=== PATIENT | female | born 1970 | race Two or more races ===

== ENCOUNTER 2020-01-08 00:16 | Emergency (ER) | payer MEDICARE, OTHER ==
[~2020-01-08] VITALS: Ht 162.6 cm; Wt 113.4 kg
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
--- NOTE | 2020-01-08 00:42 | NUR ---
HOT DIP GALVANIZER AT BEDSIDE FOR BLOOD DRAW
[2020-01-08 00:51] LABS: BASOPHILS % (AUTO) 0.4 % (0.0-2.0); EOSINOPHILS % (AUTO) 2.7 % (0.0-6.0); HEMATOCRIT 36 % (33-45); HEMOGLOBIN 11.7 g/dL (11.5-14.8); LYMPHOCYTES # (AUTO) 1.6 /CMM (0.8-4.8); LYMPHOCYTES % (AUTO) 24.4 % (20.0-44.0); MEAN CORPUSCULAR HGB CONC 33 g/dl (31.0-36.0); MEAN CORPUSCULAR VOLUME 91 fL (82-100); MONOCYTES # (AUTO) 0.4 /CMM (0.1-1.30); MONOCYTES % (AUTO) 6.1 % (2.0-12.0); NEUTROPHILS # (AUTO) 4.3 /CMM (1.8-8.9); NEUTROPHILS % (AUTO) 66.4 % (43.0-81.0); PLATELET COUNT (AUTO) 236 /CMM (150-450); RED BLOOD CELL COUNT(AUTO) 3.94 MIL/uL (4.0-5.2); WHITE BLOOD COUNT (AUTO) 6.5 K/uL (4.3-11.0)
--- NOTE | 2020-01-08 01:00 | NUR ---
[employer] AT BEDSIDE
[2020-01-08 01:09] LABS: ALANINE AMINOTRANSFERASE 18 U/L (12-78); ALBUMIN 2.9 g/dL (3.4-5.0); ALCOHOL, BLOOD < 3 mg/dL (0-0); ALKALINE PHOSPHATASE 60 U/L (46-116); ASPARTATE AMINOTRANSFERASE 11 U/L (15-37); BILIRUBIN,DIRECT 0.1 mg/dL (0.0-0.2); BILIRUBIN,TOTAL 0.2 mg/dL (0.2-1.0); CALCIUM, SERUM 8.2 mg/dL (8.5-10.1); CARBON DIOXIDE 32 mmol/L (21-32); CHLORIDE 104 mmol/L (98-107); CREATININE 0.7 mg/dL (0.6-1.3); GLUCOSE 152 mg/dL (74-106); POTASSIUM 4.4 mmol/L (3.5-5.1); SODIUM SERUM 142 mmol/L (136-145); UREA NITROGEN, BLOOD 16 mg/dL (7-18)
--- NOTE | 2020-01-08 01:10 | NUR ---
PT UNABLE TO PROVIDE URINE SAMPLE AT THIS TIME. MD ERIC
--- NOTE | 2020-01-08 01:11 | NUR ---
BROUGHT BY RADIOLOGY TO CT
[2020-01-08 01:14] LABS: ACETAMINOPHEN 0 ug/ml (10-30)
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
--- NOTE | 2020-01-08 02:34 | NUR ---
PT STATED SHE WILL NOT PROVIDE URINE SAMPLE. STATED "I AM NOT SUICIDAL" DENIES HI WELL.
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
[2020-01-08 02:46] VITALS: BP 132/81
== END 2020-01-08 02:47 | disposition left against medical advice (07) ==
LOC: ER 00:20 → EDBD 00:20 → ER 02:47
DX: F32.9 Major depressive disorder, single episode, unspecified (principal); F41.9 Anxiety disorder, unspecified; R45.851 Suicidal ideations; R51 Headache; E66.01 Morbid (severe) obesity due to excess calories; Z68.41 Body mass index [BMI] 40.0-44.9, adult; Z59.0 Homelessness; Y04.8XXA Assault by other bodily force, initial encounter; Y93.89 Activity, other specified; Y92.89 Other specified places as the place of occurrence of the external cause; Y99.8 Other external cause status
CPT/HCPCS: 36415; 70450; 80048; 80076; 80307; 80329; 85025; 99284; G0480

== ENCOUNTER 2020-03-23 17:25 | Emergency (ER) | payer MEDICARE, OTHER ==
[~2020-03-23] VITALS: Ht 170.2 cm; Wt 104.3 kg
[2020-03-23] MEDS ORDERED: IBUPROFEN 400 MG TABLET PO ONE (18:00)
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
[2020-03-23] MEDS ORDERED: IBUPROFEN 400 MG TABLET ONE (18:06)
--- NOTE | 2020-03-23 21:05 | NUR ---
Patient given written and verbal discharge instructions. Patient verbalizes understanding of instructions. Patient is ambulatory with steady gait. Refuses offer of longterm placement. Patient given list of available shelters in surrounding area.
--- NOTE | 2020-03-23 21:05 | NUR ---
Patient discharged to home in stable condition. Written and verbal after care instructions given. Patient verbalizes understanding of instruction.
[2020-03-23 22:22] VITALS: BP 123/75
== END 2020-03-23 21:23 | disposition home or self-care (01) ==
LOC: ER 17:52
DX: S00.83XA Contusion of other part of head, initial encounter (principal); S19.89XA Other specified injuries of other specified part of neck, initial encounter; K04.7 Periapical abscess without sinus; R51.9 Headache, unspecified; Z59.0 Homelessness; Y08.89XA Assault by other specified means, initial encounter; Y93.89 Activity, other specified; Y92.89 Other specified places as the place of occurrence of the external cause; Y99.8 Other external cause status
CPT/HCPCS: 36415; 70450-TC; 70486-TC; 72125-TC; 84702-TC

== ENCOUNTER 2020-03-24 10:15 | Emergency (ER) | payer MEDICARE, OTHER ==
[~2020-03-24] VITALS: Ht 167.6 cm; Wt 127.0 kg
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
[2020-03-24 10:35] VITALS: BP 146/81
[2020-03-24] MEDS ORDERED: HYDROCODONE/APAP 5/325MG TABLET ONE (11:05)
[2020-03-24] MEDS ORDERED: HYDROCODONE/APAP 5/325MG TABLET PO ONE (11:30)
--- NOTE | 2020-03-24 13:04 | NUR ---
Patient given written and verbal discharge instructions. Patient verbalizes understanding of instructions. Patient is on her wheelchair. Refuses offer of prison placement. Patient given list of available shelters in surrounding area and refused. refused signing homeless waiver. Security escorted the patient out.
== END 2020-03-24 13:04 | disposition home or self-care (01) ==
LOC: ER 10:19
DX: R52 Pain, unspecified (principal); Z59.0 Homelessness